=== PATIENT | female | born 1995 | race Caucasian/White ===

== ENCOUNTER 2017-02-10 10:59 | Inpatient (IN) | payer OTHER ==
--- NOTE | 2017-02-10 11:31 | PDOC ---
History of Present Illness - General History Source: Patient Exam Limitations: No Limitations - History of Present Illness Initial Comments: CHIEF COMPLAINT: 21 y/o afebrile female M1, approximately 16 weeks female with LMP 10/21/16 c/o abdominal pain, nausea and back pain today. HISTORY OF PRESENT ILLNESS: The patient states she started having abdominal pain last night. This morning she felt feverish and the pain was worse so she came here to be evaluated. She denies chills, MCKEON, cough, v/d, CP, SOB, hematuria, dysuria, abnormal vaginal bleeding, abnormal vaginal discharge. Vital signs on arrival are notable for pulse of 136 with temp of 99. REVIEW OF SYSTEMS: GENERAL/CONSTITUTIONAL: Subjective fever. No weakness. No weight change. HEAD, EYES, EARS, NOSE AND THROAT: No change in vision. No ear pain or discharge. No sore throat. CARDIOVASCULAR: No chest pain or shortness of breath. RESPIRATORY: No cough, wheezing, or hemoptysis. GASTROINTESTINAL: See history of present illness. GENITOURINARY: No dysuria, frequency, or change in urination. MUSCULOSKELETAL: No joint or muscle swelling or pain. No neck or back pain. SKIN: No rash or easy bruising. NEUROLOGIC: No headache, vertigo, loss of consciousness, or loss of sensation. PHYSICAL EXAM: GENERAL: The patient is awake, alert, and fully oriented, in no acute distress. HEAD: Normal with no signs of trauma. ENT: Pupils equal, round and reactive to light, extraocular movements intact, sclera anicteric, conjunctiva clear. LUNGS: Clear to auscultation bilaterally. Normal excursion. No respiratory distress or use of accessory muscles. CV: RRR, S1/S2, no MRG. Cap refill < 2 sec. ABDOMEN: Soft, non-distended, TTP of left lower quadrant and epigastric region. Right flank pain. VAGINAL: DEFERRED EXTREMITIES: Normal range of motion, no edema. NEUROLOGICAL: Normal speech, normal gait. CN II-XII grossly intact. PSYCH: Normal mood, normal affect. SKIN: Warm, dry, normal turgor, no rashes or lesions noted. <Asia Beckett - Last Filed: 02/10/17 18:11> <Naldo Sun - Last Filed: 02/10/17 21:33> - General Chief Complaint: Pain Stated Complaint: BACK PAIN Time Seen by Provider: 02/10/17 11:28 Past History - Past Medical History Other medical history: NONE - Psycho/Social/Smoking Cessation Hx Anxiety: No Suicidal Ideation: No Smoking History: Never smoked Hx Alcohol Use: No Drug/Substance Use Hx: No Substance Use Type: None <Asia Beckett - Last Filed: 02/10/17 18:11> <Naldo Sun - Last Filed: 02/10/17 21:33> - Past Medical History Allergies/Adverse Reactions: Allergies Allergy/AdvReac Type Severity Reaction Status Date / Time No Known Allergies Allergy Verified 02/10/17 11:03 Home Medications: Ambulatory Orders Cephalexin Monohydrate [Keflex -] 500 mg PO BID #14 capsule 02/10/17 *Physical Exam - Vital Signs Last Vital Signs Temp Pulse Resp BP Pulse Ox 99.0 F 136 H 20 116/58 98 02/10/17 11:00 02/10/17 11:00 02/10/17 11:00 02/10/17 11:00 02/10/17 11:00 <Asia Beckett - Last Filed: 02/10/17 18:11> - Vital Signs Last Vital Signs Temp Pulse Resp BP Pulse Ox 98.3 F 119 H 20 114/68 99 02/10/17 17:57 02/10/17 17:57 02/10/17 17:57 02/10/17 17:57 02/10/17 17:57 <Naldo Sun - Last Filed: 02/10/17 21:33> ED Treatment Course - LABORATORY CBC & Chemistry Diagram: 02/10/17 12:00 02/10/17 12:00 <Asia Beckett - Last Filed: 02/10/17 18:11> - LABORATORY CBC & Chemistry Diagram: 02/10/17 12:00 02/10/17 12:00 - ADDITIONAL ORDERS Additional order review: Laboratory Results 02/10/17 02/10/17 02/10/17 17:58 16:49 12:10 Sodium Potassium Chloride Carbon Dioxide Anion Gap BUN Creatinine Creat Clearance w eGFR Random Glucose Lactic Acid 0.8 Calcium Total Bilirubin AST ALT Alkaline Phosphatase Total Protein Albumin TSH 0.66 Free T4 1.15 Urine Color Yellow Urine Appearance Clear Urine pH 5.0 Ur Specific [place] 1.025 Urine Protein 1+ H Urine Glucose (UA) Negative Urine Ketones 2+ H Urine Blood Negative Urine Nitrite Negative Urine Bilirubin Negative Urine Urobilinogen Negative Ur Leukocyte Esterase Negative Urine RBC 1 Urine WBC 3 Ur Epithelial Cells Rare Hyaline Casts 3 Urine Mucus Many Blood Type Antibody Screen 02/10/17 02/10/17 12:00 12:00 Sodium 138 Potassium 3.7 Chloride 102 Carbon Dioxide 25 Anion Gap 11 BUN 6 L D Creatinine 0.5 L D Creat Clearance w eGFR > 60 Random Glucose 80 D Lactic Acid Calcium 8.6 Total Bilirubin 0.4 D AST 19 ALT 17 Alkaline Phosphatase 71 D Total Protein 6.9 Albumin 3.3 L TSH Free T4 Urine Color Urine Appearance Urine pH Ur Specific [place] Urine Protein Urine Glucose (UA) Urine Ketones Urine Blood Urine Nitrite Urine Bilirubin Urine Urobilinogen Ur Leukocyte Esterase Urine RBC Urine WBC Ur Epithelial Cells Hyaline Casts Urine Mucus Blood Type O POSITIVE Antibody Screen Negative 02/10/17 15:11 Group A Strep Rapid Antigen - Final Throat 02/10/17 12:00 RBC 4.43 MCV 85.0 MCHC 34.5 RDW 13.3 MPV 7.6 Neutrophils % 84.0 H D Lymphocytes % 4.9 L D Monocytes % 8.3 Eosinophils % 2.4 Basophils % 0.4 - Medications Given in the ED: ED Medications Discontinued Medications Generic Name Dose Route Start Last Admin Trade Name Dialloq PRN Reason Stop Dose Admin Acetaminophen 1,000 mg 02/10/17 14:46 02/10/17 14:51 Ofirmev Injection - IVPB 02/10/17 14:47 1,000 mg ONCE ONE Administration Cephalexin HCl 500 mg 02/10/17 16:21 02/10/17 16:35 Keflex - PO 02/10/17 16:22 500 mg ONCE ONE Administration Sodium Chloride 1,000 mls @ 1,000 mls/hr 02/10/17 12:24 02/10/17 13:08 Normal Saline - IV 02/10/17 13:23 1,000 mls/hr ASDIR STA Administration Sodium Chloride 1,000 mls @ 1,000 mls/hr 02/10/17 13:32 02/10/17 13:37 Normal Saline - IV 02/10/17 14:31 1,000 mls/hr ASDIR STA Administration Sodium Chloride 1,000 mls @ 1,000 mls/hr 02/10/17 16:31 02/10/17 16:51 Normal Saline - IV 02/10/17 17:30 1,000 mls/hr ASDIR STA Administration <Naldo Sun - Last Filed: 02/10/17 21:33> Medical Decision Making - Medical Decision Making A/P: 21 y/o afebrile female, approximately 16 weeks c/o abdominal pain and feeling feverish. Plan is as follows: 1. Labs 2. UA/culture 3. IV fluids x 2 4. Ultrasound Ultrasound IMPRESSION: Single live intrauterine gestation of 15 weeks 2 days Kidney ultrasound IMPRESSION: No hydronephrosis or sign of kidney stone. Pt is now febrile. Will give IV Ofirmev. Will do rapid strep to r/o throat infection Rapid strep - negative Will send for gallbladder ultrasound Gallbladder Ultrasound IMPRESSION: Normal gallbladder ultrasound. The patient has had 3 liters of fluids, is no longer febrile but continues to be tachycardic. She was given first dose of PO keflex for UTI. Will order EKG , thyroid studies and will start on D5 1/2NS @ 200L/hr. I am signing this patient out to my colleague: NERIS Sun In brief, this patient is being seen in the ED for a chief complaint of: abdominal pain and feeling feverish. I have completed the initial assessment interview note and have ordered: labs, ekg, kidney ultrasound, gallbladder ultrasound, transvaginal ultrasound, rapid strep, IV fluids, IV ofirmev I have reviewed the following results: all except thyroid studies Pending results are: Thyroid studies and repeat vital signs. Plan for disposition is as follows: Pending 02/10/17 18:12 <Asia Beckett - Last Filed: 02/10/17 18:11> - Medical Decision Making 02/10/17 20:22 VITALS: T- 100.9, P- 129, R-22, B/P- 109/68, O2- 100% RA. PLAN: ADMIT TO OBSERVATION RE: TACHYCARDIA, DEHYDRATION, 15 WEEKS. <Naldo Sun - Last Filed: 02/10/17 21:33> *DC/Admit/Observation/Transfer <Asia Beckett - Last Filed: 02/10/17 18:11> - Discharge Dispostion Admit: Yes <Naldo Sun - Last Filed: 02/10/17 21:33> Diagnosis at time of Disposition: Dehydration Fever Qualifiers: Fever type: unspecified Qualified Code(s): R50.9 - Fever, unspecified UTI (urinary tract infection) during Qualifiers: Trimester: second trimester Qualified Code(s): O23.42 - Unspecified infection of urinary tract in , second trimester - Discharge Dispostion Condition at time of disposition: Fair - Prescriptions Prescriptions: Cephalexin Monohydrate [Keflex -] 500 mg PO BID #14 capsule - Referrals Referrals: STAFF,NOT ON [Primary Care Provider] - - Patient Instructions Printed Discharge Instructions: DI for Urinary Tract Infection (UTI), DI for Fever (Symptom) -- Adult Additional Instructions: Discharge Instructions: -You have an infection in your urine; an antibiotic has been sent to your pharmacy; please pickle pumper today and take entire 7 days -You may have fever for the next few days. Please take 650mg of over the counter Tylenol every 4 hours for fever -Drink at least 64oz of water daily -Call your doctor and your MECHANICAL MANUFACTURING ENGINEER on Sunday to schedule follow up appointment -Return to the ER with any worsening or concerning symptoms. Instrucciones de shi: -Usted tiene mary jane infeccin en la orina; Se mckeon enviado un antibitico a garcia farmacia; Por favor recoja hoy y tome 7 pabon completos - Puede tener fiebre deanna los prximos pabon. Por favor, tome 650mg de sobre el mostrador Tylenol cada 4 horas para la fiebre - Angela por lo menos 64oz de agua al da - Llame a garcia mdico ya garcia obstetra / gineclogo el lunes para programar mary jane jose luis de seguimiento -Vuelva a la kan de emergencias con cualquier empeoramiento o sntomas relacionados. Print Language: JAPANESE
[2017-02-10 12:10] LABS: BASOPHIL 0.4 % (0-2.0); EOSINOPHIL 2.4 % (0-4.5); MCH 29.3 pg (25.7-33.7); MCHC 34.5 g/dl (32.0-36.0); MEAN PLT VOLUME 7.6 fl (7.5-11.1); PLATELET COUNT 256 K/MM3 (134-434); RDW 13.3 % (11.6-15.6); WHITE BLOOD COUNT 8.7 K/mm3 (4.0-10.0)
[2017-02-10 12:18] LABS: URINE APPEARANCE CLEAR; URINE BILIRUBIN NEGATIVE (NEGATIVE); URINE BLOOD NEGATIVE (NEGATIVE); URINE COLOR YELLOW; URINE GLUCOSE (UA) NEGATIVE (NEGATIVE); URINE KETONE 2+ (NEGATIVE); URINE LEUK ESTERASE NEGATIVE (NEGATIVE); URINE NITRITE NEGATIVE (NEGATIVE); URINE UROBILINOGEN NEGATIVE E.U./dl (0.2-1.0)
[2017-02-10] MEDS ORDERED: SODIUM CHLORIDE 1,000 ML IV STA ×3 (12:24→16:31)
[2017-02-10 12:34] LABS: ALBUMIN 3.3 g/dl (3.4-5.0); ALK PHOS 71 U/L (45-117); ANION GAP 11 (8-16); BILIRUBIN,TOTAL 0.4 mg/dL (0.2-1.0); CALCIUM 8.6 mg/dL (8.5-10.1); CO2 25 mmol/L (21-32); CREATININE 0.5 mg/dL (0.55-1.02); GLUCOSE,RANDOM 80 mg/dL (74-106); SGOT/AST 19 U/L (15-37); SGPT/ALT 17 U/L (12-78); TOT PROT 6.9 g/dl (6.4-8.2)
[2017-02-10 12:38] LABS: URINE PROTEIN 1+ (NEGATIVE)
[2017-02-10 12:43] LABS: URINE HYALINE CAST 3 /lpf; URINE MUCUS MANY; URINE RBC 1 /hpf (0-3); URINE WBC 3 /hpf (3-5)
[2017-02-10] MEDS ORDERED: ACETAMINOPHEN 1000 MG/100 ML VIAL (NON FORMULARY) IVPB ONE (14:46)
[2017-02-10] MEDS ORDERED: ACETAMINOPHEN INJECTION 100 ML IVPB ONE (14:49)
[2017-02-10] MEDS ORDERED: CEPHALEXIN MONOHYDRATE 500 MG CAPSULE (UD) PO ONE (16:21)
[2017-02-10] MEDS ORDERED: CEPHALEXIN MONOHYDRATE 250 MG CAPSULE (FP) ONE (16:24)
[2017-02-10] MEDS ORDERED: DEXTROSE 5%-0.45% SALINE 1,000 ML IV SCH ×2 (18:00→20:30)
[2017-02-10 19:31] LABS: FREE T4 1.15 ng/dl (0.76-1.46); THYROID STIMULATING HORMONE 0.66 uIU/ml (0.358-3.74)
--- NOTE | 2017-02-10 19:54 | PDOC ---
*Physical Exam - Vital Signs Last Vital Signs Temp Pulse Resp BP Pulse Ox 98.3 F 119 H 20 114/68 99 02/10/17 17:57 02/10/17 17:57 02/10/17 17:57 02/10/17 17:57 02/10/17 17:57 ED Treatment Course - LABORATORY CBC & Chemistry Diagram: 02/10/17 12:00 02/10/17 12:00 - ADDITIONAL ORDERS Additional order review: Laboratory Results 02/10/17 02/10/17 02/10/17 17:58 16:49 12:10 Sodium Potassium Chloride Carbon Dioxide Anion Gap BUN Creatinine Creat Clearance w eGFR Random Glucose Lactic Acid 0.8 Calcium Total Bilirubin AST ALT Alkaline Phosphatase Total Protein Albumin TSH 0.66 Free T4 1.15 Urine Color Yellow Urine Appearance Clear Urine pH 5.0 Ur Specific [place] 1.025 Urine Protein 1+ H Urine Glucose (UA) Negative Urine Ketones 2+ H Urine Blood Negative Urine Nitrite Negative Urine Bilirubin Negative Urine Urobilinogen Negative Ur Leukocyte Esterase Negative Urine RBC 1 Urine WBC 3 Ur Epithelial Cells Rare Hyaline Casts 3 Urine Mucus Many Blood Type Antibody Screen 02/10/17 02/10/17 12:00 12:00 Sodium 138 Potassium 3.7 Chloride 102 Carbon Dioxide 25 Anion Gap 11 BUN 6 L D Creatinine 0.5 L D Creat Clearance w eGFR > 60 Random Glucose 80 D Lactic Acid Calcium 8.6 Total Bilirubin 0.4 D AST 19 ALT 17 Alkaline Phosphatase 71 D Total Protein 6.9 Albumin 3.3 L TSH Free T4 Urine Color Urine Appearance Urine pH Ur Specific [place] Urine Protein Urine Glucose (UA) Urine Ketones Urine Blood Urine Nitrite Urine Bilirubin Urine Urobilinogen Ur Leukocyte Esterase Urine RBC Urine WBC Ur Epithelial Cells Hyaline Casts Urine Mucus Blood Type O POSITIVE Antibody Screen Negative 02/10/17 15:11 Group A Strep Rapid Antigen - Final Throat 02/10/17 12:00 RBC 4.43 MCV 85.0 MCHC 34.5 RDW 13.3 MPV 7.6 Neutrophils % 84.0 H D Lymphocytes % 4.9 L D Monocytes % 8.3 Eosinophils % 2.4 Basophils % 0.4 - Medications Given in the ED: ED Medications Discontinued Medications Generic Name Dose Route Start Last Admin Trade Name Freq PRN Reason Stop Dose Admin Acetaminophen 1,000 mg 02/10/17 14:46 02/10/17 14:51 Ofirmev Injection - IVPB 02/10/17 14:47 1,000 mg ONCE ONE Administration Cephalexin HCl 500 mg 02/10/17 16:21 02/10/17 16:35 Keflex - PO 02/10/17 16:22 500 mg ONCE ONE Administration Sodium Chloride 1,000 mls @ 1,000 mls/hr 02/10/17 12:24 02/10/17 13:08 Normal Saline - IV 02/10/17 13:23 1,000 mls/hr ASDIR STA Administration Sodium Chloride 1,000 mls @ 1,000 mls/hr 02/10/17 13:32 02/10/17 13:37 Normal Saline - IV 02/10/17 14:31 1,000 mls/hr ASDIR STA Administration Sodium Chloride 1,000 mls @ 1,000 mls/hr 02/10/17 16:31 02/10/17 16:51 Normal Saline - IV 02/10/17 17:30 1,000 mls/hr ASDIR STA Administration Medical Decision Making - Medical Decision Making 02/10/17 19:38 21 yo F signed out to me at 4pm, nettie garcía 21 yo F with 16 weeks here with not feeling well, subjective fevers, abd pain and flank pain, on her work up was found to have a normal renal ultrasound normal gallbladder and live iup on ultraosund remained persistantly tachycardic despite being afebrile. bedside TTE performed by myself, no pericardial effusion, good contractility, no rv dilation or strain, . impression: normal cardiac TTE. awaiting further hydration , po trial and reassessemnt. for persistant tachycardia plan to admit pt for observation. TSh added to r/o hyperthyroid. *DC/Admit/Observation/Transfer Diagnosis at time of Disposition: Fever Qualifiers: Fever type: unspecified Qualified Code(s): R50.9 - Fever, unspecified UTI (urinary tract infection) during Qualifiers: Trimester: second trimester Qualified Code(s): O23.42 - Unspecified infection of urinary tract in , second trimester - Discharge Dispostion Condition at time of disposition: Improved - Prescriptions Prescriptions: Cephalexin Monohydrate [Keflex -] 500 mg PO BID #14 capsule - Referrals Referrals: STAFF,NOT ON [Primary Care Provider] - - Patient Instructions Printed Discharge Instructions: DI for Urinary Tract Infection (UTI), DI for Fever (Symptom) -- Adult Additional Instructions: Discharge Instructions: -You have an infection in your urine; an antibiotic has been sent to your pharmacy; please mushroom picker today and take entire 7 days -You may have fever for the next few days. Please take 650mg of over the counter Tylenol every 4 hours for fever -Drink at least 64oz of water daily -Call your doctor and your CERTIFIED NOVELL ENGINEER on Sunday to schedule follow up appointment -Return to the ER with any worsening or concerning symptoms. Instrucciones de shi: -Usted tiene mary jane infeccin en la orina; Se eid enviado un antibitico a garcia farmacia; Por favor recoja hoy y tome 7 pabon completos - Puede tener fiebre deanna los prximos pabon. Por favor, tome 650mg de sobre el mostrador Tylenol cada 4 horas para la fiebre - Angela por lo menos 64oz de agua al da - Llame a garcia mdico ya garcia obstetra / gineclogo el lunes para programar mary jane jose luis de seguimiento -Vuelva a la kan de emergencias con cualquier empeoramiento o sntomas relacionados. Print Language: MALTESE - Post Discharge Activity
--- NOTE | 2017-02-10 21:14 | PN ---
Teaching Attending Note Name of Resident: Ayad Busby ATTENDING PHYSICIAN STATEMENT I saw and evaluated the patient. I reviewed the resident's note and discussed the case with the resident. I agree with the resident's findings and plan as documented. SUBJECTIVE: Patient is a 21yo 15week female presented to Ed. for having fever started this morning. Was found to have 101 fever in ED. back pain when taking deep breath on the left side. Boyfriend at bedside. OBJECTIVE: Vital Signs Temperature 100.4 F H 02/10/17 20:27 Pulse Rate 124 H 02/10/17 20:27 Respiratory Rate 18 02/10/17 20:27 Blood Pressure 109/62 02/10/17 20: O2 Sat by Pulse Oximetry (%) 98 02/10/17 20:27 PHYSICAL EXAM: GENERAL: The patient is awake, alert, and fully oriented, in no acute distress. HEAD: Normal with no signs of trauma. ENT: Pupils equal, round and reactive to light, extraocular movements intact, sclera anicteric, conjunctiva clear. LUNGS: CTA BL, positive for mild crackles at left basis. CV: RRR, S1/S2, sinus tachycardia ABDOMEN: Soft, non-distended, no epigastric tenderness. No CVA tenderness. EXTREMITIES: Normal range of motion, no edema. NEUROLOGICAL: Normal speech, normal gait. CN II-XII grossly intact. PSYCH: Normal mood, normal affect. SKIN: Warm, dry, normal turgor, no rashes or lesions noted. : DEFERRED CBCD WBC 8.7 K/mm3 (4.0-10.0) 02/10/17 12:00 RBC 4.43 M/mm3 (3.60-5.2) 02/10/17 12:00 Hgb 13.0 GM/dL (10.7-15.3) 02/10/17 12:00 Hct 37.6 % (32.4-45.2) 02/10/17 12:00 MCV 85.0 fl (80-96) 02/10/17 12:00 MCHC 34.5 g/dl (32.0-36.0) 02/10/17 12:00 RDW 13.3 % (11.6-15.6) 02/10/17 12:00 Plt Count 256 K/MM3 (134-434) D 02/10/17 12:00 MPV 7.6 fl (7.5-11.1) 02/10/17 12:00 CMP Sodium 138 mmol/L (136-145) 02/10/17 12:00 Potassium 3.7 mmol/L (3.5-5.1) 02/10/17 12:00 Chloride 102 mmol/L (98-107) 02/10/17 12:00 Carbon Dioxide 25 mmol/L (21-32) 02/10/17 12:00 Anion Gap 11 (8-16) 02/10/17 12:00 BUN 6 mg/dL (7-18) L D 02/10/17 12:00 Creatinine 0.5 mg/dL (0.55-1.02) L D 02/10/17 12:00 Creat Clearance w eGFR > 60 (>60) 02/10/17 12:00 Random Glucose 80 mg/dL (74-106) D 02/10/17 12:00 Calcium 8.6 mg/dL (8.5-10.1) 02/10/17 12:00 Total Bilirubin 0.4 mg/dL (0.2-1.0) D 02/10/17 12:00 AST 19 U/L (15-37) 02/10/17 12:00 ALT 17 U/L (12-78) 02/10/17 12:00 Alkaline Phosphatase 71 U/L (45-117) D 02/10/17 12:00 Total Protein 6.9 g/dl (6.4-8.2) 02/10/17 12:00 Albumin 3.3 g/dl (3.4-5.0) L 02/10/17 12:00 Current Medications Generic Name Dose Route Start Last Admin Trade Name Freq PRN Reason Stop Dose Admin Dextrose/Sodium Chloride 1,000 mls @ 200 mls/hr 02/10/17 18:00 02/10/17 18:02 D5-1/2ns - IV 200 mls/hr ASDIR YELITZA Administration Dextrose/Sodium Chloride 1,000 mls @ 125 mls/hr 02/10/17 20:30 02/10/17 20:42 D5-1/2ns - IV 125 mls/hr ASDIR YELITZA Administration Home Medications Medication Instructions Recorded Cephalexin Monohydrate [Keflex -] 500 mg PO BID #14 capsule 02/10/17 Laboratory Tests 02/10/17 02/10/17 12:00 17:58 BUN 6 L D Creatinine 0.5 L D Albumin 3.3 L TSH 0.66 Free T4 1.15 Urine Test Results Urine Color Yellow 02/10/17 12:10 Urine Appearance Clear 02/10/17 12:10 Urine pH 5.0 (5.0-8.0) 02/10/17 12:10 Ur Specific [place] 1.025 (1.005-1.025) 02/10/17 12:10 Urine Protein 1+ (NEGATIVE) H 02/10/17 12:10 Urine Glucose (UA) Negative (NEGATIVE) 02/10/17 12:10 Urine Ketones 2+ (NEGATIVE) H 02/10/17 12:10 Urine Blood Negative (NEGATIVE) 02/10/17 12:10 Urine Nitrite Negative (NEGATIVE) 02/10/17 12:10 Urine Bilirubin Negative (NEGATIVE) 02/10/17 12:10 Ur Leukocyte Esterase Negative (NEGATIVE) 02/10/17 12:10 Urine RBC 1 /hpf (0-3) 02/10/17 12:10 Urine WBC 3 /hpf (3-5) 02/10/17 12:10 Ur Epithelial Cells Rare /hpf (FEW) 02/10/17 12:10 Urine Mucus Many 02/10/17 12:10 US of abdomen,renal done: reviewed and negative ASSESSMENT AND PLAN: Patient is a 21yo 15week female presented to Ed. for having fever started this morning. Was found to have 101 fever in ED. c/o having back pain when taking deep breaths on the left side. # Possible early Pneumonia, an xray is pending. Tachycardic rate of 120-130s, fever of 101, no Leukocytosis ; will start the patient on Rocephin 1gm daily for consult and OBGyn Dr. Long. Septic w/u is being done. IVF 0.9ns 200CC/HR. REPEAT CBC WITH DIFF IN AM. repeat lactic in 3 hrs. !st set is 0.8 # of 15 week obgyn CONSULT. reviewed US DVT Px; early ambulation
--- NOTE | 2017-02-10 22:36 | HP ---
CHIEF COMPLAINT: fevers, nausea HISTORY OF PRESENT ILLNESS: 21 y/o Icelandic speaking F who is 15 weeks who presents to the ER with subjective fevers since this morning. She also c/o nausea, L mid back pain, and as if her heart is racing. Her back pain is worsened with deep inspiration. She denies vomiting, cough, CP, SOB, neck pain, diarrhea, dysuria, light-headedness , sick contacts, recent travel. ER course was notable for: (1) Gallbladder U/S, Renal U/S, Transvaginal U/S (2) (3) Recent Travel: denies PAST MEDICAL HISTORY: denies any PMH PAST SURGICAL HISTORY: denies Social History: Smoking: denies Family History: non-contributory Allergies No Known Allergies Allergy (Verified 02/10/17 11:03) HOME MEDICATIONS: Home Medications Medication Instructions Recorded Cephalexin Monohydrate [Keflex -] 500 mg PO BID #14 capsule 02/10/17 REVIEW OF SYSTEMS CONSTITUTIONAL: +fever Absent: chills HEENT: Absent: rhinorrhea, nasal congestion, visual changes CARDIOVASCULAR: +heart racing Absent: chest pain, syncope, palpitations, lightheadedness, peripheral edema RESPIRATORY: Absent: cough, shortness of breath GASTROINTESTINAL: +nausea Absent: vomiting, diarrhea, constipation GENITOURINARY: Absent: dysuria, hematuria MUSCULOSKELETAL: +back pain NEUROLOGIC: +headache Absent:dizziness, unsteady gait, seizure, mental status changes Vital Signs Temperature 100.4 F H 02/10/17 20:27 Pulse Rate 124 H 02/10/17 20:27 Respiratory Rate 18 02/10/17 20:27 Blood Pressure 109/62 02/10/17 20:27 O2 Sat by Pulse Oximetry (%) 98 02/10/17 20:27 PHYSICAL EXAMINATION GENERAL: Awake, alert, and fully oriented, in no acute distress. HEAD: Normal with no signs of trauma. EYES: extraocular movements intact, sclera anicteric, conjunctiva clear. No lid lag. EARS, NOSE, THROAT: Ears normal, nares patent, oropharynx clear without exudates. NECK: Normal range of motion, supple LUNGS: Breath sounds equal, clear to auscultation bilaterally. No wheezes, and no crackles. No accessory muscle use. HEART: Tachycardic, normal S1 and S2 without murmur, rub or gallop. ABDOMEN: Soft, nontender, not distended, normoactive bowel sounds, no guarding, no rebound, no masses. No hepatomegaly or splenomegaly. MUSCULOSKELETAL: Normal range of motion at all joints. No bony deformities or tenderness. No CVA tenderness. LOWER EXTREMITIES: 2+ pulses, warm, well-perfused. No calf tenderness. No peripheral edema. NEUROLOGICAL: Normal speech. Gait not observed. PSYCHIATRIC: Cooperative. Good eye contact. Appropriate mood and affect. SKIN: tactile fever, dry. CBCD WBC 8.7 K/mm3 (4.0-10.0) 02/10/17 12:00 RBC 4.43 M/mm3 (3.60-5.2) 02/10/17 12:00 Hgb 13.0 GM/dL (10.7-15.3) 02/10/17 12:00 Hct 37.6 % (32.4-45.2) 02/10/17 12:00 MCV 85.0 fl (80-96) 02/10/17 12:00 MCHC 34.5 g/dl (32.0-36.0) 02/10/17 12:00 RDW 13.3 % (11.6-15.6) 02/10/17 12:00 Plt Count 256 K/MM3 (134-434) D 02/10/17 12:00 MPV 7.6 fl (7.5-11.1) 02/10/17 12:00 CMP Sodium 138 mmol/L (136-145) 02/10/17 12:00 Potassium 3.7 mmol/L (3.5-5.1) 02/10/17 12:00 Chloride 102 mmol/L (98-107) 02/10/17 12:00 Carbon Dioxide 25 mmol/L (21-32) 02/10/17 12:00 Anion Gap 11 (8-16) 02/10/17 12:00 BUN 6 mg/dL (7-18) L D 02/10/17 12:00 Creatinine 0.5 mg/dL (0.55-1.02) L D 02/10/17 12:00 Creat Clearance w eGFR > 60 (>60) 02/10/17 12:00 Random Glucose 80 mg/dL (74-106) D 02/10/17 12:00 Calcium 8.6 mg/dL (8.5-10.1) 02/10/17 12:00 Total Bilirubin 0.4 mg/dL (0.2-1.0) D 02/10/17 12:00 AST 19 U/L (15-37) 02/10/17 12:00 ALT 17 U/L (12-78) 02/10/17 12:00 Alkaline Phosphatase 71 U/L (45-117) D 02/10/17 12:00 Total Protein 6.9 g/dl (6.4-8.2) 02/10/17 12:00 Albumin 3.3 g/dl (3.4-5.0) L 02/10/17 12:00 Imaging: Ultrasound IMPRESSION: Single live intrauterine gestation of 15 weeks 2 days Kidney ultrasound IMPRESSION: No hydronephrosis or sign of kidney stone. Gallbladder Ultrasound IMPRESSION: Normal gallbladder ultrasound. ASSESSMENT/PLAN: 21 y/o Icelandic speaking F who is 15 weeks who presents to the ER with subjective fevers since this morning. Found to have fever of 100.4 and tachycardic w/worsening back pain with deep inspiration. -Fever and tachycardia -likely secondary to early onset community acquired pna -will get CXR with shielding of abdomen -ceftriaxone 1g iv qd -ID consult -tylenol for fevers -NS @ 200 ml/hr -TSH 0.66; free T4 1.15 -f/u free T3 -Lactic acid 0.8 --> 2, will continue to trend -Fever of 102.4 in ER, will give 1 g IV ofirmev at this time. -Intrauterine -15 weeks -yarder operator consult -DVT ppx -SCDs -FEN -NS @ 200 ml/hr -Monitor electrolytes -Regular diet -Dispo: -admit to m/s Visit type - Emergency Visit Emergency Visit: Yes ED Registration Date: 02/10/17 Care time: The patient presented to the Emergency Department on the above date and was hospitalized for further evaluation of their emergent condition. - New Patient This patient is new to me today: Yes Date on this admission: 02/11/17 - Critical Care Critical Care patient: No
[2017-02-10] MEDS ORDERED: SODIUM CHLORIDE 1,000 ML IV SCH (22:45)
[2017-02-10] MEDS ORDERED: ACETAMINOPHEN 500 MG TABLET (FP) PO PRN (23:10)
[2017-02-10] MEDS ORDERED: ACETAMINOPHEN 500 MG TABLET (FP) PO ONE (23:20)
[2017-02-10] MEDS ORDERED: ACETAMINOPHEN 325 MG TABLET (FP) ONE (23:26)
[2017-02-11] MEDS ORDERED: CEFTRIAXONE 50 ML ONE (00:06)
[2017-02-11] MEDS ORDERED: CEFTRIAXONE 1 GM in DEXTROSE 5%-WATER - 100 ML IVPB ONE (00:12)
[2017-02-11] MEDS ORDERED: ACETAMINOPHEN 1000 MG/100 ML VIAL (NON FORMULARY) IVPB ONE (00:43)
[2017-02-11] MEDS ORDERED: ACETAMINOPHEN 325 MG TABLET (FP) PO PRN (00:46)
[2017-02-11] MEDS: SODIUM CHLORIDE 1,000 ML IV SCH ×3 (02:16→13:15)
[2017-02-11 04:06] VITALS: BMI 24.3
[2017-02-11 08:33] LABS: BASOPHIL 0.5 % (0-2.0); EOSINOPHIL 2.1 % (0-4.5); MCH 29.6 pg (25.7-33.7); MCHC 34.2 g/dl (32.0-36.0); MEAN CELL VOLUME 86.5 fl (80-96); NEUTROPHILS 64.9 % (42.8-82.8); PLATELET COUNT 214 K/MM3 (134-434); RDW 13.2 % (11.6-15.6); WHITE BLOOD COUNT 5.8 K/mm3 (4.0-10.0)
[2017-02-11 08:58] LABS: ALBUMIN 2.6 g/dl (3.4-5.0); ANION GAP 8 (8-16); CALCIUM 8.3 mg/dL (8.5-10.1); CO2 23 mmol/L (21-32); CREATININE 0.4 mg/dL (0.55-1.02); GLUCOSE,RANDOM 78 mg/dL (74-106); SGOT/AST 19 U/L (15-37); SGPT/ALT 15 U/L (12-78)
[2017-02-11 09:00] LABS: ALK PHOS 57 U/L (45-117); BILIRUBIN,TOTAL 0.3 mg/dL (0.2-1.0); TOT PROT 5.7 g/dl (6.4-8.2)
[2017-02-11] MEDS ORDERED: cefTRIAXone 1 GM/50 ML BAG (PRE-DOCKED) IVPB SCH (10:00)
[2017-02-11] MEDS ORDERED: CEFTRIAXONE 1 GM in DEXTROSE 5%-WATER - 50 ML IVPB SCH (10:00)
--- NOTE | 2017-02-11 10:09 | PN ---
Progress Note, Physician Chief Complaint: 15 weeks gestation from [facility] living in 2 years presents with fever headache mild left flank and upper abd discomfort Denies urinary complaints couph sputum body aches rash diarrhea. NO recent travel Headaches and abd discomfort have resolved. Denies prior medical history allergies. No outdoor travel tick bites gardening. No one else home ill. Obstetrical ultrasound normal. - Current Medication List Current Medications: Active Medications Acetaminophen (Tylenol -) 650 mg PO Q6H PRN PRN Reason: FEVER OR PAIN Ceftriaxone Sodium (Rocephin 1gm Ivpb (Pre-Docked)) 1 gm IVPB DAILY [facility] Last Admin: 02/11/17 09:45 Dose: 1 gm Sodium Chloride (Normal Saline -) 1,000 mls @ 200 mls/hr IV ASDIR [facility] Last Admin: 02/11/17 06:17 Dose: 200 mls/hr - Objective Vital Signs: Vital Signs Temperature 98.1 F 02/11/17 08:50 Pulse Rate 105 H 02/11/17 08:50 Respiratory Rate 18 02/11/17 08:50 Blood Pressure 110/58 02/11/17 08:50 O2 Sat by Pulse Oximetry (%) 99 02/11/17 02:18 Constitutional: Yes: Well Nourished, No Distress Eyes: Yes: WNL, Conjunctiva Clear HENT: Yes: WNL, Atraumatic, Normocephalic Neck: Yes: WNL, Supple Cardiovascular: Yes: Regular Rate and Rhythm, S1, S2 Respiratory: Yes: WNL, Regular, CTA Bilaterally Gastrointestinal: Yes: WNL, Normal Bowel Sounds, Soft. No: Tenderness Edema: No Labs: CBC, BMP 02/11/17 07:50 02/11/17 07:50 Problem List - Problems (1) Fever Code(s): R50.9 - FEVER, UNSPECIFIED Qualifiers: Fever type: unspecified Qualified Code(s): R50.9 - Fever, unspecified (2) Code(s): Z33.1 - STATE, INCIDENTAL Assessment/Plan Laboratory Tests 02/10/17 02/11/17 02/11/17 12:10 07:50 07:50 WBC 5.8 D Hgb 11.8 Hct 34.5 Plt Count 214 Neutrophils % 64.9 D Lymphocytes % 16.6 D Monocytes % 15.9 H D Creatinine 0.4 L Creat Clearance w eGFR > 60 AST 19 ALT 15 Alkaline Phosphatase 57 Ur Leukocyte Esterase Negative Urine RBC 1 Urine WBC 3 Assessment 15 weeks with 102 fever No obvious source Viral illness considered Plan As discussed Ceftriaxone 1 gram daily pending blood urine c /s Mary DIALLO
--- NOTE | 2017-02-11 11:43 | PN ---
Physical Exam: SUBJECTIVE: Patient seen and examined at bed side this morning. Feels better than yesterday. Denies chest pain, sob, cough, palpitation, abdominal pain, nausea or vomiting. Bowel/Bladder habit normal. Sleep/Appetite normal. Patient mentioned that last night she had severe abdominal pain, radiating towards the left flank. She also had fever (not recorded) associated with chills en route to the hospital. She was concerned for abdominal pain since she had a miscarriage at 6months gestation around 2yrs ago. reports no vaginal bleeding or discharge. 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 No urinary symptoms at this time. OBJECTIVE: Vital Signs Period Temp Pulse Resp BP Sys/Powell Pulse Ox Last 24 Hr 98.1 F-102.4 F 105-146 18-22 95-112/55-67 98-99 GENERAL: Young female, is awake, alert, and fully oriented, in no acute distress. HEAD: Normal with no signs of trauma. EYES: EOM intact, no pallor or icterus. ENT: Ears normal, moist mucous membranes. NECK: Supple. LUNGS: Breath sounds equal, clear to auscultation bilaterally, no wheezes, no crackles, no accessory muscle use. HEART: Regular rate and rhythm, S1, S2 without murmur, rub or gallop. ABDOMEN: Soft, nontender, nondistended, normoactive bowel sounds, no guarding, no rebound, no hepatosplenomegaly, no masses. EXTREMITIES: 2+ pulses, warm, well-perfused, no edema. NEUROLOGICAL: No facial droop, Cranial nerves II through XII grossly intact. Normal speech, gait not observed. PSYCH: Normal mood, normal affect. SKIN: Warm, dry, normal turgor, no rashes or lesions noted Laboratory Results - last 24 hr 02/11/17 02/11/17 02/11/17 00:15 07:50 07:50 WBC 5.8 D RBC 3.99 Hgb 11.8 Hct 34.5 MCV 86.5 MCHC 34.2 RDW 13.2 Plt Count 214 MPV 8.0 Neutrophils % 64.9 D Lymphocytes % 16.6 D Monocytes % 15.9 H D Eosinophils % 2.1 Basophils % 0.5 Sodium 140 Potassium 3.8 Chloride 109 H Carbon Dioxide 23 Anion Gap 8 BUN 2 L* D Creatinine 0.4 L Creat Clearance w eGFR > 60 Random Glucose 78 Lactic Acid 2.0 Calcium 8.3 L Total Bilirubin 0.3 D AST 19 ALT 15 Alkaline Phosphatase 57 Total Protein 5.7 L Albumin 2.6 L D 02/11/17 07:50 WBC RBC Hgb Hct MCV MCHC RDW Plt Count MPV Neutrophils % Lymphocytes % Monocytes % Eosinophils % Basophils % Sodium Potassium Chloride Carbon Dioxide Anion Gap BUN Creatinine Creat Clearance w eGFR Random Glucose Lactic Acid 0.7 Calcium Total Bilirubin AST ALT Alkaline Phosphatase Total Protein Albumin Active Medications Generic Name Dose Route Start Last Admin Trade Name Freq PRN Reason Stop Dose Admin Acetaminophen 650 mg 02/11/17 00:46 Tylenol - PO Q6H PRN FEVER OR PAIN Ceftriaxone Sodium 1 gm 02/11/17 10:00 02/11/17 09:45 Rocephin 1gm Ivpb (Pre-Docked) IVPB 1 gm DAILY YELITZA Administration Sodium Chloride 1,000 mls @ 200 mls/hr 02/11/17 00:44 02/11/17 06:17 Normal Saline - IV 200 mls/hr ASDIR YELITZA Administration Imaging: Ultrasound IMPRESSION: Single live intrauterine gestation of 15 weeks 2 days Kidney ultrasound IMPRESSION: No hydronephrosis or sign of kidney stone. Gallbladder Ultrasound IMPRESSION: Normal gallbladder ultrasound. ASSESSMENT/PLAN: Patient is a 21 year old [place] Citizen speaking Female G2L0 @ 15 weeks gestation who presented to the ED with subjective fevers since this morning. Found to have fever of 100.4 and tachycardic with worsening back pain with deep inspiration. # Viral fever R/o pneumonia, UTI Has no urinary symptoms, no cough, sob, had a fever x 1 day which wasn't recorded. Group A strep-negative Throat culture pending Admitted in Med Surg IV NS @ 100mls/hr IV Ceftriaxone 1gm daily - Day 1 until blood culture and urine cultures come back CXR (done with spear for )- no acute pathology Lactic acid 0.8---> 2-->0.7-->1.9 Tylenol 650mg Q6H prn ID consult appreciated # G4L0 USG showed 15 weeks and 2 days gestation Shank Carrier consult requested # FEN IV NS @ 100mls./hr Electrolytes to be repeated in the morning Regular diet # Prophylaxis For DVT: Ambulating For GI: Not indicated # Dispo:Admitted in Med-Surg. Possible discharge tomorrow. Illness, Investigation and Plan of care explained to the patient. She verbalized understanding. Case discussed with Dr. Wiggins. Visit type - Emergency Visit Emergency Visit: Yes ED Registration Date: 02/10/17 Care time: The patient presented to the Emergency Department on the above date and was hospitalized for further evaluation of their emergent condition. - New Patient This patient is new to me today: Yes Date on this admission: 02/11/17 - Critical Care Critical Care patient: No
[2017-02-11] MEDS ORDERED: SODIUM CHLORIDE 1,000 ML IV SCH (14:28)
--- NOTE | 2017-02-11 16:01 | PN ---
Teaching Attending Note Name of Resident: Samara Russell ATTENDING PHYSICIAN STATEMENT I saw and evaluated the patient. I reviewed the resident's note and discussed the case with the resident. I agree with the resident's findings and plan as documented. SUBJECTIVE:fever . no chills reports sore throat and runny nose 3 days ago, then developed abd pain and back pain with breathins yesterday now resolved. no diarrhea , no dysuria or vaginal discharge or bleed OBJECTIVE: NAD CV: RRR Lungs : CTAB ext : no edema Abd : soft, NT, ND , NL BS ASSESSMENT AND PLAN: 21 y/o lady who is 15 week presented with fever . 1- fever : no clear source . likely viral illness ( sore throat , runny nose and now abd pain ) . no UA , no PNA . no leukocytosis . no vaginal discharge rapid strep Neg. cx of throat pending blood cx pending cont CTX. d/w ID 2- Pregnency : SENIOR CLINICAL DATA ANALYST consult
--- NOTE | 2017-02-11 17:25 | EKG ---
Test Reason : Blood Pressure : / mmHG Vent. Rate : 112 BPM Atrial Rate : 112 BPM P-R Int : 130 ms QRS Dur : 082 ms QT Int : 328 ms P-R-T Axes : 034 047 010 degrees QTc Int : 447 ms SINUS TACHYCARDIA NONSPECIFIC T WAVE ABNORMALITY ABNORMAL ECG NO PREVIOUS ECGS AVAILABLE Confirmed by RINKU BURROUGHS MD ([id number]) on 02/11/2017 5:25:09 PM Referred By: Confirmed By:RINKU BURROUGHS MD
--- NOTE | 2017-02-11 19:47 | CON.OBG ---
Consult Consult Specialty:: provider relations consultant Referred by:: Kehinde Bray Reason for Consultation:: 15 weeks preg c/o fever ,headache, vague upper abd pain - History of Present Illness Chief Complaint: 21 yrs , LMP 10/21/16 , 16 weeks by dates admitted fron ER on 02/10/17 for fever, upper abd pain & headache for 1 day . she is being treated with IV ceftriaxione 1gm ivpb daily History of Present Illness: care at [address] [place] [address] . 2 visits with provider . pt presently has no symptoms of pain or headache or vomiting . she has no urine symptoms of burning or dysuria or frequency etc . work up in ER & as in patient noted cxray neg, GB us neg for cholelthiasis, Renal Us neg, OB US 15./ weeks SILUP, cx 3.0 cm , normal amniotic fluid Cultures Urine, throat, infuenza all neg . 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 No: Migraine, Seizure Cardio/Vascular: No: HTN, Murmur Pulmonary: No: Asthma Gastrointestinal: Yes: Other (no vomoting , vague upper abd pain ). No: Gastritis Hepatobiliary: No: Choledocholithiasis Renal/: No: UTI ...LMP: 10/21/16 (EDCby Dates 07/29/17. 16 wks gestation ) ...: Yes ...: 2 (1 sp ab at 6months, still born on 09/16/2005in [place] ) ...Para: 0 Infectious Disease: No: HIV, STD's Psych: No: Addictions, Anxiety, Bipolar, Depression Endocrine: No: Diabetes Mellitus, Hyperthyroidism, Hypothyroidism - Past Surgical History Past Surgical History: Yes: None - Alcohol/Substance Use Hx Alcohol Use: No History of Substance Use: reports: None - Smoking History Smoking history: Never smoked Home Medications - Allergies Allergies/Adverse Reactions: Allergies Allergy/AdvReac Type Severity Reaction Status Date / Time No Known Allergies Allergy Verified 02/10/17 11:03 - Home Medications Home Medications: Ambulatory Orders Cephalexin Monohydrate [Keflex -] 500 mg PO BID #14 capsule 02/10/17 Physical Exam-[facility] Vital Signs: Vital Signs Temperature 97.4 F L 02/11/17 16:24 Pulse Rate 94 H 02/11/17 16:24 Respiratory Rate 16 02/11/17 16:24 Blood Pressure 106/61 02/11/17 16:24 O2 Sat by Pulse Oximetry (%) 99 02/11/17 09:00 Selected Entries 02/10/17 02/10/17 02/10/17 11:00 14:46 16:35 Temperature 100.1 F H Pulse Rate 136 H Pulse Rate [ 122 H 132 H Radial] 02/10/17 02/10/17 02/11/17 17:57 20:27 06:00 Temperature 100.4 F H 99.8 F H Pulse Rate 107 H Pulse Rate [ 119 H 124 H Radial] 02/11/17 08:50 Temperature 98.1 F Pulse Rate 105 H Pulse Rate [ Radial] Constitutional: Yes: Well Nourished, No Distress, Other (pleasnt) Eyes: Yes: WNL HENT: Yes: WNL, Normocephalic Neck: Yes: WNL Cardiovascular: Yes: WNL, Regular Rate and Rhythm Respiratory: Yes: WNL Gastrointestinal: Yes: WNL, Normal Bowel Sounds. No: Tenderness ...Rectal Exam: Yes: Deferred Renal/: Yes: WNL, . No: CVA Tenderness - Left, CVA Tenderness - Right , Vaginal Bleeding External Genitalia: Yes: Normal Internal Exam Deferred: Yes Vaginal Exam: Yes: Normal Cervix: Yes: Normal, Other (cx closed, firm.). No: Bleeding, Cerv Motion Tenderness Uterus: Yes: Enlarged (16 weeks uterus fudal Ht 16 weeks size FPF. FHS 156 bpm by doppler in the midline), Soft Adnexa: Normal: Bilateral, Not Palpable: Bilateral Breast(s): Yes: WNL Musculoskeletal: Yes: WNL Extremities: Yes: WNL. No: Calf Tenderness Edema: No Integumentary: Yes: WNL Neurological: Yes: WNL, Alert, Oriented ...Motor Strength: WNL Psychiatric: Yes: WNL, Alert, Oriented Labs: CBC, BMP 02/11/17 07:50 02/11/17 07:50 Microbiology 02/10/17 20:30 Nasopharyngeal Swab Influenza Types A,B Antigen (DEION) - Final 02/10/17 20:30 Nasopharyngeal Swab - Final 02/10/17 15:11 Throat Group A Strep Rapid Antigen - Final 02/10/17 12:10 Urine - Urine Clean Catch Urine Culture - Final NO GROWTH OBTAINED 02/10/17 20:30 Nasopharyngeal Swab Respiratory Virus Panel - Preliminary 02/10/17 15:11 Throat Throat Culture - Preliminary 02/10/17 15:11 Throat Pending Organism Laboratory Tests 02/10/17 02/10/17 02/10/17 12:00 12:10 17:58 WBC 8.7 Hgb 13.0 Hct 37.6 Plt Count 256 D Neutrophils % 84.0 H D Lymphocytes % 4.9 L D AST ALT TSH 0.66 Free T4 1.15 Urine Protein 1+ H Urine Ketones 2+ H Ur Leukocyte Esterase Negative Urine RBC 1 Urine WBC 3 02/11/17 07:50 WBC Hgb Hct Plt Count Neutrophils % Lymphocytes % AST 19 ALT 15 TSH Free T4 Urine Protein Urine Ketones Ur Leukocyte Esterase Urine RBC Urine WBC Problem List - Problems (1) 16 weeks gestation of Code(s): Z3A.16 - 16 WEEKS GESTATION OF (2) Dehydration Code(s): E86.0 - DEHYDRATION (3) Fever of unknown origin Code(s): R50.9 - FEVER, UNSPECIFIED Assessment/Plan 21 yrs , 16 weks by dates, 15.2 weeks by sono admitted for fever of unknown origin work up neg for infection most probably secondary to dehydration , commonly seen in due to lack of po intake of fluids , especially when weather is hot. recommend stop antibiotics po fluids pt should continue her vit daily . keep her clinic appt on 02/20/[address] [place] [address] for follow up
[2017-02-12] MEDS ORDERED: CEFTRIAXONE 1 GM in DEXTROSE 5%-WATER - 50 ML IVPB ONE (07:54)
[2017-02-12 08:22] VITALS: BP 115/65; PULSE 88; TEMP 98.3
[2017-02-12 08:22] LABS: MCH 29.6 pg (25.7-33.7); MCHC 34.4 g/dl (32.0-36.0); MEAN CELL VOLUME 85.9 fl (80-96); PLATELET COUNT 221 K/MM3 (134-434); RDW 13.3 % (11.6-15.6); WHITE BLOOD COUNT 5.1 K/mm3 (4.0-10.0)
--- NOTE | 2017-02-12 08:32 | PN ---
Progress Note (short form) - Note Progress Note: ID Feels well no complaints Selected Entries 02/12/17 08:21 Temperature 98.3 F Pulse Rate 88 Respiratory 18 Rate Blood Pressure 115/65 Laboratory Tests 02/11/17 02/12/17 07:50 06:30 WBC 5.8 D Pending Hgb 11.8 Pending Plt Count 214 Pending Assessment Afebrile? beta strep on throat culture but no sorethroat Plan Can discharge on no antibiotics or could give PCN VK Mary DIALLO Problem List - Problems (1) Fever Code(s): R50.9 - FEVER, UNSPECIFIED Qualifiers: Fever type: unspecified Qualified Code(s): R50.9 - Fever, unspecified (2) Code(s): Z33.1 - STATE, INCIDENTAL
[2017-02-12 08:48] LABS: ANION GAP 7 (8-16); CALCIUM 8.3 mg/dL (8.5-10.1); CO2 25 mmol/L (21-32); CREATININE 0.4 mg/dL (0.55-1.02); GLUCOSE,RANDOM 69 mg/dL (74-106)
[2017-02-12 10:23] LABS: PLATELET ESTIMATE ADEQUATE (NORMAL)
--- NOTE | 2017-02-12 13:54 | DS ---
Physical Exam: SUBJECTIVE: Patient seen and examined at bed side this morning. No complaints. Denies chest pain, sob, cough, palpitation, abdominal pain, nausea or vomiting. Bowel/Bladder habit normal. Sleep/Appetite normal. OBJECTIVE: Vital Signs Period Temp Pulse Resp BP Sys/Powell Pulse Ox Last 24 Hr 97.4 F-99 F 88-99 16-18 98-116/52-65 99-99 PHYSICAL EXAM GENERAL: Young female, is awake, alert, and fully oriented, in no acute distress. HEAD: Normal with no signs of trauma. EYES: EOM intact, no pallor or icterus. ENT: Ears normal, moist mucous membranes. NECK: Supple. LUNGS: Breath sounds equal, clear to auscultation bilaterally, no wheezes, no crackles, no accessory muscle use. HEART: Regular rate and rhythm, S1, S2 without murmur, rub or gallop. ABDOMEN: Soft, nontender, nondistended, normoactive bowel sounds, no guarding, no rebound, no hepatosplenomegaly, no masses. EXTREMITIES: 2+ pulses, warm, well-perfused, no edema. NEUROLOGICAL: No facial droop, Cranial nerves II through XII grossly intact. Normal speech, gait not observed. PSYCH: Normal mood, normal affect. SKIN: Warm, dry, normal turgor, no rashes or lesions noted LABS Laboratory Results - last 24 hr 02/11/17 02/12/17 02/12/17 14:45 06:30 06:30 WBC 5.1 RBC 4.09 Hgb 12.1 Hct 35.1 MCV 85.9 MCHC 34.4 RDW 13.3 Plt Count 221 MPV 8.0 Neutrophils % 48.0 D Lymphocytes % 30.0 D Monocytes % 21.0 H Eosinophils % 1.0 Differential Comment Manual diff done Platelet Estimate Adequate Sodium 139 Potassium 3.9 Chloride 107 Carbon Dioxide 25 Anion Gap 7 L BUN 5 L D Creatinine 0.4 L Random Glucose 69 L Lactic Acid 1.9 Calcium 8.3 L Ultrasound IMPRESSION: Single live intrauterine gestation of 15 weeks 2 days Kidney ultrasound IMPRESSION: No hydronephrosis or sign of kidney stone. Gallbladder Ultrasound IMPRESSION: Normal gallbladder ultrasound. HOSPITAL COURSE: Date of Admission:02/10/17 Date of Discharge: 02/12/17 Patient is a 21 year old [place] speaking Female G2L0 @ 15 weeks gestation who presented to the ED with subjective fevers x1 day. Found to have fever of 100.4 and tachycardic with worsening back pain with deep inspiration. Patient also complained of abdominal pain that started x 1 day Admitted for evaluation of fever. Ruled out pneumonia (CXR negative); UTI (UA normal). Group A strep-negative. Throat culture pendingFever most likely due to dehydration which is commonly seen in due to lack of adequate fluid intake. ID and flight engineer inspector was consulted. Patient doesn't have a transplant coordinator, appointment scheduled on 02/26/[address] Barrios. G4L0. USG showed 15 weeks and 2 days gestation. Continue vitamins. Encourage PO intake. Plan of care explained to the patient. She verbalized understanding. Case discussed with Dr. Wiggins. Minutes to complete discharge: 45 Discharge Summary Reason For Visit: UTI, FEVER, DEHYDRATION Current Active Problems 16 weeks gestation of (Acute) Dehydration (Acute) Fever (Acute) Fever of unknown origin (Acute) (Acute) UTI (urinary tract infection) during (Chronic) Condition: Improved - Instructions Diet, Activity, Other Instructions: Discharge Instructions: You were admitted for evaluation of fever which is most likely due to dehydration, common in . Please drink plenty of fluids. Your appointment with shipping clerk packing has been scheduled 02/20/2017 at 2pm, please continue to take folic acid. You do not need to take any other medication at this time. Please return to the Emergency Department immediately if your symptoms persist or if you develop any new symptoms. Instrucciones de shi: -Usted eid sido evaluada por fiebre, que es resultado de deshidracion, comun en el embarazo. Por favor lon cecilia agua y fluidos. [place] jose luis con la ginecologa eid sido hecho para 02/20/2017 a las 2 PM. Por favor continuar tomando las vitaminas prenatales. No es necesario beber ninguna otra medicacion. Por favor vuelva al Departamento de Emergencias si brian sintomas continuan. Referrals: Isidra Weems MD [Staff Physician] - 02/20/17 2:00 pm STAFF,NOT ON [Primary Care Provider] - Disposition: HOME This patient is new to me today: No Emergency Visit: Yes ED Registration Date: 02/10/17 Care time: The patient presented to the Emergency Department on the above date and was hospitalized for further evaluation of their emergent condition. Critical Care patient: No - Discharge Referral Referred to [facility] Med P.C.: No
--- NOTE | 2017-02-12 18:28 | PN ---
Teaching Attending Note Name of Resident: Samara Russell ATTENDING PHYSICIAN STATEMENT I saw and evaluated the patient. I reviewed the resident's note and discussed the case with the resident. I agree with the resident's findings and plan as documented. SUBJECTIVE: no fever , no abd pain or cp or cough OBJECTIVE: NAD CV: RRR Lungs : CTAB ext : no edema Abd : soft, NT, ND , NL BS ASSESSMENT AND PLAN: 21 y/o lady who is 15 week presented with fever . 1- Fever : no clear source . likely viral illness no UA , no PNA . no leukocytosis . no vaginal discharge rapid strep Neg. cx of throat neg blood cx no growth to date dc abx 2- Pregnency : seen by CLINICAL STATISTICAL PROGRAMMER f/u as out pt
--- NOTE | 2017-02-22 15:46 | EKG ---
Test Reason : Blood Pressure : / mmHG Vent. Rate : 144 BPM Atrial Rate : 144 BPM P-R Int : 118 ms QRS Dur : 076 ms QT Int : 270 ms P-R-T Axes : 033 036 -19 degrees QTc Int : 418 ms POOR DATA QUALITY, INTERPRETATION MAY BE ADVERSELY AFFECTED SINUS TACHYCARDIA NONSPECIFIC T WAVE ABNORMALITY ABNORMAL ECG WHEN COMPARED WITH ECG OF 10-FEB-2017 18:06, NO SIGNIFICANT CHANGE WAS FOUND Confirmed by MEGHAN DIALLO, ISABEL ([id number]) on 02/22/2017 3:45:55 PM Referred By: Confirmed By:ISABEL CHRISTIANSON MD
== END 2017-02-12 18:05 | disposition home or self-care (01) | DRG 566 ==
LOC: JER 10:59 → JERBED 21:33 → J6S 02-11 03:07
PROVIDERS: ADMIT Internal Medicine; ATTEND Internal Medicine
DX: O98.512 Other viral diseases complicating pregnancy, second trimester (principal); O26.892 Other specified pregnancy related conditions, second trimester; E86.0 Dehydration; R50.9 Fever, unspecified; Z3A.15 15 weeks gestation of pregnancy
CPT/HCPCS: 36415; 71010-TC; 76705-TC; 76775-TC; 76815-TC; 80048; 80053; 81003; 81015; 83605; 84439; 84443; 84481; 85025; 86850; 86900; 86901; 87040; 87070; 87086; 87254; 87430; 87804; 93005; 93010; 99285-25

== ENCOUNTER 2017-07-16 14:10 | Inpatient (IN) | payer OTHER ==
[2017-07-16] MEDS ORDERED: DINOPROSTONE 10 MG VAGINAL SUPPOSITORY VG ONE ×2 (15:00→16:15)
--- NOTE | 2017-07-16 15:55 | HP ---
Past Medical History - Admission Chief Complaint: Elective induction History of Present Illness: 21 yo , @ 38 weeks gestation, EDC 07/27/17, sent by Dr Gaines's office for induction of labor due to suspicion of IUGR. Patient has h/o loss at 24 weeks gestation. 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 No: Migraine, Seizure Gastrointestinal: Yes: Other (no vomoting , vague upper abd pain ). No: Gastritis ...: 2 ...Para: 0 ...: 1 ...EDC by Sono: 07/27/17 - Past Surgical History Past Surgical History: Yes: None Hx Myomectomy: No Hx Transabdominal Cerclage: No - Smoking History Smoking history: Never smoked Have you smoked in the past 12 months: No - Alcohol/Substance Use Hx Alcohol Use: No History of Substance Use: reports: None Home Medications - Allergies Allergies/Adverse Reactions: Allergies Allergy/AdvReac Type Severity Reaction Status Date / Time No Known Allergies Allergy Verified 07/16/17 15:23 - Home Medications Home Medications: Ambulatory Orders Vit/Iron Fumarate/FA [ Tablet] 1 tab PO DAILY 07/11/17 Family Disease History - Family Disease History Family History: Unremarkable Review of Systems - Review of Systems Constitutional: reports: No Symptoms Eyes: reports: No Symptoms HENT: reports: No Symptoms Neck: reports: No Symptoms Cardiovascular: reports: No Symptoms Respiratory: reports: No Symptoms Gastrointestinal: reports: No Symptoms Genitourinary: reports: No Symptoms Breasts: reports: No Symptoms Reported Musculoskeletal: reports: No Symptoms Integumentary: reports: No Symptoms Neurological: reports: No Symptoms Endocrine: reports: No Symptoms Hematology/Lymphatic: reports: No Symptoms Psychiatric: reports: No Symptoms Pain Intensity: 1 Physical Exam - Maternity Constitutional: Yes: Well Nourished Eyes: Yes: WNL HENT: Yes: WNL Neck: Yes: Supple Cardiovascular: Yes: Regular Rate and Rhythm Lungs: Clear to auscultation Breast(s): Yes: WNL - Abdominal Exam/OB Number of Fetuses: Single Presentation: Vertex Contractions: No - Vaginal Exam/OB Vaginal Bleediing: No Dilatation (cm): 1 Amniotic Membrane Status: Intact Station: -2 - Physical Exam Musculoskeletal: Yes: WNL Extremities: Yes: WNL ...Motor Strength: WNL Psychiatric: Yes: Alert, Oriented Problem List - Problems (1) 38 weeks gestation of Code(s): Z3A.38 - 38 WEEKS GESTATION OF (2) IUGR, Code(s): P05.9 - AFFECTED BY SLOW INTRAUTERINE GROWTH, UNSPECIFIED Assessment/Plan IUP @ 38 weeks Suspicion of IUGR Personal h/o loss Admit to L&D for Cervidil induction
[2017-07-16] MEDS ORDERED: DEXTROSE 5%-LACTATED RINGERS 1,000 ML IV SCH (16:15)
[2017-07-16 16:39] VITALS: BMI 30.2
[2017-07-16 16:51] LABS: BASO % 0.5 % (0-2.0); EOS % 1.6 % (0-4.5); HEMATOCRIT 38.3 % (32.4-45.2); HEMOGLOBIN 13.4 GM/dL (10.7-15.3); LYMPH % 21.7 % (8-40); MCH 30.3 pg (25.7-33.7); MCHC 35.1 g/dl (32.0-36.0); MEAN CELL VOLUME 86.4 fl (80-96); MEAN PLT VOLUME 8.7 fl (7.5-11.1); MONO % 7.9 % (3.8-10.2); NEUT % 68.3 % (42.8-82.8); PLATELET COUNT 314 K/MM3 (134-434); RBC 4.43 M/mm3 (3.60-5.2); WHITE BLOOD COUNT 11.4 K/mm3 (4.0-10.0)
[2017-07-16 17:00] LABS: INR 0.93 (0.82-1.09); PROTHROMBIN TIME (PATIENT) 10.5 SEC (9.98-11.88)
[2017-07-16 17:03] LABS: ACTIVATED PTT 26.8 SECONDS (26.9-34.4)
[2017-07-16 17:31] LABS: CHLORIDE 104 mmol/L (98-107); POTASSIUM 4.2 mmol/L (3.5-5.1); SODIUM 137 mmol/L (136-145)
[2017-07-16 17:36] LABS: ANION GAP 12 (8-16); BLOOD UREA NITROGEN 9 mg/dL (7-18); CALCIUM 9.2 mg/dL (8.5-10.1); CO2 21 mmol/L (21-32); CREATININE 0.5 mg/dL (0.55-1.02); GLUCOSE,RANDOM 82 mg/dL (74-106)
[2017-07-17] MEDS ORDERED: BUTORPHANOL TARTRATE 1 MG/ML VIAL IVPUSH ONE (05:20)
[2017-07-17] MEDS ORDERED: PROMETHAZINE HCL 25 MG/1 ML VIAL IVPUSH ONE (05:20)
[2017-07-17] MEDS ORDERED: ELECTROLYTE-148 SOLN 1,000 ML IV SCH (08:00)
[2017-07-17] MEDS ORDERED: FENTANYL/BUPIVACAINE/NS/PF - PCEA - 50 ML DISP.SYRIN EP SCH (08:20)
[2017-07-17] MEDS ORDERED: BENZOCAINE 28 GM HEMORRHOIDAL OINTMENT TP PRN (10:11)
[2017-07-17] MEDS ORDERED: WITCH HAZEL 50% (TUCKS) 40 PAD/JAR PAD TP PRN (10:11)
[2017-07-17] MEDS ORDERED: METHYLERGONOVINE MALEATE 0.2 MG/1 ML AMP IM PRN (10:11)
[2017-07-17] MEDS ORDERED: BENZOCAINE 20% 57 GM BOTTLE TP PRN (10:11)
[2017-07-17] MEDS ORDERED: IBUPROFEN 600 MG TABLET (FP) PO PRN (10:11)
[2017-07-17] MEDS ORDERED: BISACODYL 10 MG SUPP.RECT RC PRN (10:11)
--- NOTE | 2017-07-17 10:14 | PN ---
Delivery - Delivery Vaginal Delivery: Spontaneous Type of Anesthesia: Epidural Episiotomy/Laceration: 1st degree EBL (cc): 250 Delivery, Single - [facility] Feeding Plan Initial Plan: Exclusive throughout hospitalization Remarks - Remarks Remarks: Normal spontaneous vaginal delivery of a live SGA over 1st degree laceration. Nose / Oropharyn suctioned @ perineum. Nuchal cord x1 clamped and cut Placenta expelled spontaneously intact. Laceration repaired with 2.0 Biosyn.
[2017-07-17] MEDS ORDERED: OXYTOCIN 20 UNITS in 0.9% NS 20 UNIT/1,000 ML INFUS.BAG IV SCH (10:15)
[2017-07-17] MEDS: ACETAMINOPHEN 325 MG TABLET (FP) PO PRN ×2 (11:04→18:28)
[2017-07-17] MEDS: FERROUS SO4 325 MG TABLET (FP) PO SCH ×2 (13:01→17:17)
--- NOTE | 2017-07-18 07:28 | PN ---
Post Note - Post Date of Delivery: 07/17/17 Post Day: 1 Vital Signs: Vital Signs - 24 hr 07/17/17 07/17/17 07/17/17 08:00 08:20 08:25 Temperature 98.0 F Pulse Rate 68 80 94 H Respiratory 20 20 20 Rate Blood Pressure 133/67 119/73 114/75 O2 Sat by Pulse 100 Oximetry (%) 07/17/17 07/17/17 07/17/17 08:30 08:40 09:00 Temperature Pulse Rate 74 73 87 Respiratory 20 20 20 Rate Blood Pressure 109/71 108/72 134/90 O2 Sat by Pulse 100 Oximetry (%) 07/17/17 07/17/17 07/17/17 09:15 10:00 10:15 Temperature Pulse Rate 76 103 H 92 H Respiratory 20 20 20 Rate Blood Pressure 123/81 120/62 121/80 O2 Sat by Pulse Oximetry (%) 07/17/17 07/17/17 07/17/17 10:30 10:45 12:11 Temperature 98.7 F 98.1 F Pulse Rate 74 76 89 Respiratory 20 20 18 Rate Blood Pressure 126/74 123/74 114/66 O2 Sat by Pulse Oximetry (%) 07/17/17 07/17/17 07/17/17 14:00 18:33 20:42 Temperature 99.5 F 97.6 F 98.8 F Pulse Rate 88 111 H 108 H Respiratory 18 18 20 Rate Blood Pressure 114/66 129/83 100/79 O2 Sat by Pulse Oximetry (%) 07/18/17 04:17 Temperature 98.8 F Pulse Rate 72 Respiratory 18 Rate Blood Pressure 108/67 O2 Sat by Pulse Oximetry (%) - Subjective Subjective: No Complaints - Objective Afebrile: Yes Breast: Not engorged Abdomen: Soft, Non-tender Uterus: Fundus firm Vagina: Scant lochia Extremities: Non-tender - Assessment/Plan (1) Normal vaginal delivery Assessment: S/P Normal Plan: Routine Care
[2017-07-18] MEDS: FERROUS SO4 325 MG TABLET (FP) PO SCH ×3 (07:31→17:04)
[2017-07-18 08:55] LABS: BASO % 0.6 % (0-2.0); HEMATOCRIT 35.9 % (32.4-45.2); LYMPH % 28.3 % (8-40); MCH 29.2 pg (25.7-33.7); MCHC 33.3 g/dl (32.0-36.0); MEAN CELL VOLUME 87.6 fl (80-96); MEAN PLT VOLUME 7.7 fl (7.5-11.1); MONO % 6.7 % (3.8-10.2); NEUT % 62.4 % (42.8-82.8); PLATELET COUNT 230 K/MM3 (134-434); RDW 13.6 % (11.6-15.6); WHITE BLOOD COUNT 13.7 K/mm3 (4.0-10.0)
[2017-07-18] MEDS: PRENATAL VITAMINS W/ FOLIC ACID TABLET (FP) PO SCH (09:21)
--- NOTE | 2017-07-18 09:31 | PN ---
Post Progress Note - Subjective Subjective: no complains Post Day: 1 Type of Delivery: Vital Signs: Vital Signs Temperature 98 F 07/18/17 08:41 Pulse Rate 81 07/18/17 08:41 Respiratory Rate 20 07/18/17 08:41 Blood Pressure 116/76 07/18/17 08:41 O2 Sat by Pulse Oximetry (%) 100 07/17/17 08:30 Breast Exam: Yes: Soft. No: Engorged Uterus: Yes: Fundus Firm, Fundus above umbilicus Lochia: Yes: Rubra Lochia, amount: Moderate Extremities: Yes: Calves non-tender Perineum: Yes: Intact Activity: Ambulating - Labs Labs: CBC WBC 13.7 K/mm3 (4.0-10.0) H 07/18/17 08:45 RBC 4.10 M/mm3 (3.60-5.2) 07/18/17 08:45 Hgb 12.0 GM/dL (10.7-15.3) D 07/18/17 08:45 Hct 35.9 % (32.4-45.2) 07/18/17 08:45 MCV 87.6 fl (80-96) 07/18/17 08:45 MCH 29.2 pg (25.7-33.7) 07/18/17 08:45 MCHC 33.3 g/dl (32.0-36.0) 07/18/17 08:45 RDW 13.6 % (11.6-15.6) 07/18/17 08:45 Plt Count 230 K/MM3 (134-434) D 07/18/17 08:45 MPV 7.7 fl (7.5-11.1) D 07/18/17 08:45 Neutrophils % 62.4 % (42.8-82.8) 07/18/17 08:45 Lymphocytes % 28.3 % (8-40) D 07/18/17 08:45 Monocytes % 6.7 % (3.8-10.2) 07/18/17 08:45 Eosinophils % 2.0 % (0-4.5) 07/18/17 08:45 Basophils % 0.6 % (0-2.0) 07/18/17 08:45 Problem List - Problems (1) Vaginal delivery Code(s): O80 - ENCOUNTER FOR FULL-TERM UNCOMPLICATED DELIVERY Assessment/Plan stable. plan discharge tomorrow.
[2017-07-18] MEDS ORDERED: FLU VACC QS2017-18 36MOS UP/PF 60 MCG/0.5 ML SYRINGE IM ONE (10:00)
[2017-07-18] MEDS ORDERED: DIPHTH,PERTUSS(ACELL),TET 0.5 ML DISP.SYRIN IM ONE (10:00)
[2017-07-18] MEDS ORDERED: SENNOSIDES/DOCUSATE COMBO (SENNA PLUS) TABLET (UD) PO PRN (22:00)
[2017-07-19] MEDS: FERROUS SO4 325 MG TABLET (FP) PO SCH ×2 (07:45→11:56)
[2017-07-19] MEDS: PRENATAL VITAMINS W/ FOLIC ACID TABLET (FP) PO SCH (09:41)
[2017-07-19 10:13] VITALS: BP 123/76; PULSE 93; TEMP 99.3
--- NOTE | 2017-07-19 12:13 | DS ---
Physical Exam-REHAB [facility]IAISON Vital Signs: Vital Signs Temperature 99.3 F 07/19/17 10:00 Pulse Rate 93 H 07/19/17 10:00 Respiratory Rate 18 07/19/17 10:00 Blood Pressure 123/76 07/19/17 10:00 O2 Sat by Pulse Oximetry (%) 100 07/17/17 08:30 Constitutional: Yes: Well Nourished Eyes: Yes: Conjunctiva Clear HENT: Yes: Atraumatic Neck: Yes: Supple Cardiovascular: Yes: Regular Rate and Rhythm Respiratory: Yes: Regular Gastrointestinal: Yes: Normal Bowel Sounds ...Rectal Exam: Yes: WNL Renal/: Yes: WNL Pelvis: Yes: WNL External Genitalia: Yes: Normal Vaginal Exam: Yes: Normal Cervix: Yes: Normal Uterus: Yes: Firm ....Post : Yes: Uterus firm Breast(s): Yes: WNL Musculoskeletal: Yes: WNL Neurological: Yes: Alert, Oriented ...Motor Strength: WNL Psychiatric: Yes: Alert, Oriented Labs: CBC, BMP 07/18/17 08:45 07/16/17 16:05 Delivery - Delivery Vaginal Delivery: Spontaneous Type of Anesthesia: Epidural Episiotomy/Laceration: None, 1st degree EBL (cc): 250 Delivery, Single - Stages of Labor Date 1st Stage Initiatied: 07/17/17 Time 1st Stage Initiated: 00:00 Date 2nd Stage Initiated: 07/17/17 Time 2nd Stage Initiated: 09:25 Date of Delivery: 07/17/17 Time of Delivery: 09:50 Time Placenta Delivered: 09:57 - Condition of Infant 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 Name: Heather Kevin Gender: Male Weight: 4 lb 14 oz Position: Left, OA Total Hours ROM (Hrs/Mins): 1hr 50min - 1 Minute Total Score: 7 5 Minutes Total Score: 9 - [place] Feeding Plan Initial Plan: Exclusive throughout hospitalization Discharge Summary Current Active Problems 38 weeks gestation of (Acute) IUGR, (Acute) Normal vaginal delivery (Acute) Vaginal delivery (Acute) Procedures: Principal: Normal spontaneous vaginal delivery Hospital Course: Routine care Condition: Good - Instructions Diet, Activity, Other Instructions: Regular diet No douching, no sexual intercourse x 6 weeks F/U in clinic in 6 weeks Disposition: HOME - Home Medications Comprehensive Discharge Medication List: Ambulatory Orders Vit/Iron Fumarate/FA [ Tablet] 1 tab PO DAILY 07/11/17
== END 2017-07-19 14:15 | disposition home or self-care (01) | DRG 560 ==
LOC: JDEL 14:10 → JLDR 14:55 → J3W 07-17 12:03
PROVIDERS: ADMIT Obstetrics & Gynecology; ATTEND Obstetrics & Gynecology
PROC: 10E0XZZ Delivery of Products of Conception, External Approach (ICD-10-PCS; principal; 2017-07-16)
PROC: 0HQ9XZZ Repair Perineum Skin, External Approach (ICD-10-PCS; 2017-07-16)
DX: O36.5930 Maternal care for other known or suspected poor fetal growth, third trimester, not applicable or unspecified (principal); O69.81X0 Labor and delivery complicated by cord around neck, without compression, not applicable or unspecified; O70.0 First degree perineal laceration during delivery; Z3A.39 39 weeks gestation of pregnancy; Z37.0 Single live birth
CPT/HCPCS: 36415; 59409; 80048; 85025; 85610; 85730; 86593; 86850; 86900; 86901; 90686; 90715; G0008

== ENCOUNTER 2020-10-24 17:51 | Inpatient (IN) | payer OTHER ==
[2020-10-24 18:01] VITALS: BMI 30.8
[2020-10-24 20:57] LABS: CALCIUM 8.4 mg/dL (8.5-10.1)
[2020-10-24 20:58] LABS: ALBUMIN 2.5 g/dl (3.4-5.0); MAGNESIUM 2.2 mg/dL (1.8-2.4)
[2020-10-24 21:01] LABS: CREATININE 0.4 mg/dL (0.55-1.3)
[2020-10-24 21:02] LABS: BILIRUBIN,TOTAL 0.3 mg/dL (0.2-1); TOT PROT 6.2 g/dl (6.4-8.2)
[2020-10-24 21:39] LABS: EPI CELLS >36 /uL (0-25.1); HYALINE CASTS 1 /uL (0-3.1); PH,URINE 7.5 (5.0-8.0); URINE APPEARANCE CLEAR; URINE BACTERIA 309 /uL (0-1359); URINE BILIRUBIN NEGATIVE (NEGATIVE); URINE COLOR YELLOW; URINE GLUCOSE (UA) NEGATIVE (NEGATIVE); URINE KETONE 1+ (NEGATIVE); URINE LEUK ESTERASE 1+ (NEGATIVE); URINE NITRITE NEGATIVE (NEGATIVE); URINE PROTEIN NEGATIVE (NEGATIVE); URINE RBC 5 /uL (0-23.9); URINE WBC 8 /uL (0-25.8)
[2020-10-25] MEDS ORDERED: ACETAMINOPHEN 325 MG TABLET (FP) PO PRN (01:28)
[2020-10-26 08:13] LABS: HEMOGLOBIN 12.3 GM/dL (10.7-15.3); LYMPH % 20.4 % (8-40); MCHC 34.1 g/dl (32.0-36.0); MEAN PLT VOLUME 8.1 fl (7.5-11.1); MONO % 10.6 % (3.8-10.2); PLATELET COUNT 323 K/MM3 (134-434); RBC 4.09 M/mm3 (3.60-5.2); RDW 13.2 % (11.6-15.6); WHITE BLOOD COUNT 11.9 K/mm3 (4.0-10.0)
[2020-10-26 08:25] LABS: POTASSIUM 4.2 mmol/L (3.5-5.1)
[2020-10-26 08:27] LABS: ALBUMIN 2.2 g/dl (3.4-5.0); BLOOD UREA NITROGEN 7.7 mg/dL (7-18); CALCIUM 8.8 mg/dL (8.5-10.1)
[2020-10-26 08:31] LABS: CREATININE 0.5 mg/dL (0.55-1.3)
[2020-10-26 08:32] LABS: BILIRUBIN,TOTAL 0.3 mg/dL (0.2-1); TOT PROT 5.8 g/dl (6.4-8.2)
[2020-10-26 14:23] VITALS: BP 133/80; PULSE 99; TEMP 98.2
== END 2020-10-26 14:55 | disposition home or self-care (01) | DRG 566 ==
LOC: JER 17:51 → JERBED 22:18 → J3W 22:42
PROVIDERS: ADMIT Obstetrics & Gynecology; ATTEND Obstetrics & Gynecology
DX: O26.893 Other specified pregnancy related conditions, third trimester (principal); R51.9 Headache, unspecified; H53.8 Other visual disturbances; R41.3 Other amnesia; E16.2 Hypoglycemia, unspecified; Z3A.33 33 weeks gestation of pregnancy
CPT/HCPCS: 36415; 59025; 76817-TC; 76819-TC; 80053; 81003; 82565; 82962; 82977; 83010; 83735; 84156; 84443; 84450; 84460; 84550; 85025; 85032; 85045; 93005; 93010; 93880-TC; 99285-25; C9803; U0003

== ENCOUNTER 2020-11-25 12:15 | Inpatient (IN) | payer OTHER ==
[2020-11-25] MEDS ORDERED: DEXTROSE 5%-LACTATED RINGERS 1,000 ML IV SCH (13:00)
[2020-11-25] MEDS ORDERED: DINOPROSTONE 10 MG VAGINAL SUPPOSITORY VG ONE (13:04)
[2020-11-25 14:04] LABS: BASO % 0.9 % (0-2.0); EOS % 0.7 % (0-4.5); HEMATOCRIT 38.5 % (32.4-45.2); HEMOGLOBIN 13.2 GM/dL (10.7-15.3); LYMPH % 15.8 % (8-40); MCH 30.1 pg (25.7-33.7); MCHC 34.2 g/dl (32.0-36.0); MEAN CELL VOLUME 88.2 fl (80-96); MEAN PLT VOLUME 8.3 fl (7.5-11.1); MONO % 5.8 % (3.8-10.2); NEUT % 76.8 % (42.8-82.8); PLATELET COUNT 280 K/MM3 (134-434); RBC 4.37 M/mm3 (3.60-5.2); RDW 13.7 % (11.6-15.6); WHITE BLOOD COUNT 12.3 K/mm3 (4.0-10.0)
[2020-11-25 14:11] LABS: INR 0.94 (0.83-1.09); PROTHROMBIN TIME (PATIENT) 11.4 SEC (9.7-13.0)
[2020-11-25 14:13] LABS: ACTIVATED PTT 26.3 SECONDS (25.2-36.5)
[2020-11-25 14:22] LABS: CALCIUM 9.2 mg/dL (8.5-10.1)
[2020-11-25 14:23] LABS: BLOOD UREA NITROGEN 10.7 mg/dL (7-18)
[2020-11-25 14:27] LABS: CREATININE 0.6 mg/dL (0.55-1.3)
[2020-11-25 14:28] VITALS: BMI 31.0
[2020-11-25] MEDS ORDERED: AMPICILLIN - 2 GM in SODIUM CHLORIDE 100 ML IVPB ONE (14:33)
[2020-11-25] MEDS ORDERED: PROMETHAZINE HCL 25 MG/1 ML VIAL IVPUSH ONE (14:35)
[2020-11-25] MEDS ORDERED: BUTORPHANOL TARTRATE 1 MG/ML VIAL IVPUSH PRN (14:35)
[2020-11-25] MEDS ORDERED: AMPICILLIN SODIUM 2 GM VIAL ONE (15:00)
[2020-11-25] MEDS ORDERED: BUTORPHANOL TARTRATE 2 MG/ML VIAL ONE (18:09)
[2020-11-25] MEDS ORDERED: PROMETHAZINE HCL 25 MG/1 ML VIAL ONE (18:09)
[2020-11-25] MEDS ORDERED: AMPICILLIN SODIUM 1 GM VIAL ONE ×2 (18:10→22:56)
[2020-11-25] MEDS: AMPICILLIN - 1 GM in SODIUM CHLORIDE 100 ML IVPB SCH ×2 (18:40→23:02)
[2020-11-25] MEDS ORDERED: OXYTOCIN 30 UNITS in 0.9% NS 30 UNIT/500 ML INFUS.BAG IVPB SCH (20:45)
[2020-11-25] MEDS ORDERED: ELECTROLYTE-148 SOLN 1,000 ML IV SCH (20:45)
[2020-11-25] MEDS ORDERED: FENTANYL/BUPIVACAINE/NS/PF - PCEA - 50 ML DISP.SYRIN EP ONE (20:50)
[2020-11-25] MEDS ORDERED: NALOXONE HCL 0.4 MG/ML VIAL IVPUSH PRN (20:54)
[2020-11-25] MEDS ORDERED: BUPIVACAINE HCL/PF 0.25% (2.5MG/ML) 10 ML VIAL ONE (20:59)
[2020-11-25] MEDS ORDERED: PCA PUMP NR ONE (21:03)
[2020-11-25] MEDS: FENTANYL/BUPIVACAINE/NS/PF - PCEA - 50 ML DISP.SYRIN EP SCH (21:15)
[2020-11-25] MEDS ORDERED: MEPERIDINE HCL 50 MG/ML VIAL ONE ×2 (21:52→21:58)
[2020-11-25] MEDS ORDERED: MEPERIDINE HCL 50 MG/ML VIAL IVPUSH ONE (23:04)
[2020-11-25] MEDS ORDERED: LIDOCAINE HCL 1% PRESERVATIVE FREE - 30ML VIAL ONE (23:24)
[2020-11-25] MEDS ORDERED: OXYTOCIN 20 UNITS in 0.9% NS 20 UNIT/1,000 ML INFUS.BAG IV ONE (23:24)
[2020-11-25] MEDS ORDERED: OXYTOCIN 20 UNITS in 0.9% NS 20 UNIT/1,000 ML INFUS.BAG IV SCH (23:45)
[2020-11-25] MEDS ORDERED: BENZOCAINE 20% 57 GM BOTTLE TP PRN (23:52)
[2020-11-25] MEDS ORDERED: BISACODYL 10 MG SUPP.RECT RC PRN (23:52)
[2020-11-25] MEDS ORDERED: WITCH HAZEL 50% (TUCKS) 40 PAD/JAR PAD TP PRN (23:52)
[2020-11-25] MEDS ORDERED: METHYLERGONOVINE MALEATE 0.2 MG/1 ML AMP IM PRN (23:52)
[2020-11-25] MEDS ORDERED: BENZOCAINE 28 GM HEMORRHOIDAL OINTMENT TP PRN (23:52)
[2020-11-26 00:31] LABS: CORD BASE EXCESS -3.9 mmol/L (0-2); CORD HCO3 23.1 mmHg (20-29); CORD pH 7.291 (7.14-7.44)
[2020-11-26 00:38] LABS: CORD BASE EXCESS -2.9 mmol/L (0-2); CORD HCO3 26.4 mmHg (20-29); CORD PCO2 64.9 mmHg (30-78); CORD pH 7.227 (7.14-7.44)
[2020-11-26] MEDS: AMPICILLIN - 1 GM in SODIUM CHLORIDE 100 ML IVPB SCH (03:30)
[2020-11-26 07:49] LABS: BASO % 0.7 % (0-2.0); EOS % 0.9 % (0-4.5); HEMATOCRIT 35.4 % (32.4-45.2); HEMOGLOBIN 12.5 GM/dL (10.7-15.3); LYMPH % 17.4 % (8-40); MCH 31.2 pg (25.7-33.7); MCHC 35.4 g/dl (32.0-36.0); MEAN PLT VOLUME 7.9 fl (7.5-11.1); MONO % 7.7 % (3.8-10.2); NEUT % 73.3 % (42.8-82.8); PLATELET COUNT 244 K/MM3 (134-434); RBC 4.02 M/mm3 (3.60-5.2); RDW 13.3 % (11.6-15.6); WHITE BLOOD COUNT 15.5 K/mm3 (4.0-10.0)
[2020-11-26] MEDS: FERROUS SO4 325 MG TABLET (FP) PO SCH ×2 (10:37→21:10)
[2020-11-26] MEDS: IBUPROFEN 600 MG TABLET (FP) PO PRN ×2 (10:37→22:56)
[2020-11-26] MEDS: PRENATAL VITAMINS W/ FOLIC ACID TABLET (FP) PO SCH (10:38)
[2020-11-26] MEDS: ACETAMINOPHEN 325 MG TABLET (FP) PO PRN ×2 (10:38→22:56)
[2020-11-26] MEDS: FENTANYL/BUPIVACAINE/NS/PF - PCEA - 50 ML DISP.SYRIN EP SCH (21:00)
[2020-11-26] MEDS ORDERED: SENNOSIDES/DOCUSATE COMBO (SENNA PLUS) TABLET (UD) PO PRN (22:00)
[2020-11-26 22:36] VITALS: TEMP 98.2
[2020-11-27] MEDS: FERROUS SO4 325 MG TABLET (FP) PO SCH (09:47)
[2020-11-27] MEDS: PRENATAL VITAMINS W/ FOLIC ACID TABLET (FP) PO SCH (09:47)
[2020-11-27] MEDS: IBUPROFEN 600 MG TABLET (FP) PO PRN (09:47)
[2020-11-27] MEDS: ACETAMINOPHEN 325 MG TABLET (FP) PO PRN (09:48)
[2020-11-27 13:40] VITALS: BP 126/88; PULSE 86
== END 2020-11-27 13:55 | disposition home or self-care (01) | DRG 560 ==
LOC: JLDR 12:15 → J3W 11-26 02:21
PROVIDERS: ADMIT Obstetrics & Gynecology; ATTEND Obstetrics & Gynecology
PROC: 10E0XZZ Delivery of Products of Conception, External Approach (ICD-10-PCS; principal; 2020-11-25)
PROC: 3E0P7VZ Introduction of Hormone into Female Reproductive, Via Natural or Artificial Opening (ICD-10-PCS; 2020-11-25)
DX: O42.12 Full-term premature rupture of membranes, onset of labor more than 24 hours following rupture (principal); Z3A.38 38 weeks gestation of pregnancy; Z37.0 Single live birth
CPT/HCPCS: 36415; 36600; 59409; 80048; 82803; 85025; 85610; 85730; 86780; 86850; 86900; 86901; C9803; J2175; U0003; U0005

== ENCOUNTER 2021-03-21 15:45 | Emergency (ER) | payer OTHER ==
[2021-03-21 16:16] VITALS: BP 124/84; PULSE 89; TEMP 98.5; BMI 27.8
[2021-03-21 18:36] LABS: CHLORIDE 110 mmol/L (98-107); SODIUM 142 mmol/L (136-145)
[2021-03-21 18:38] LABS: ALBUMIN 3.8 g/dl (3.4-5.0); ANION GAP 7 MMOL/L (8-16); BASO % 0.6 % (0-2.0); BLOOD UREA NITROGEN 13.6 mg/dL (7-18); CALCIUM 8.7 mg/dL (8.5-10.1); CO2 25 mmol/L (21-32); EOS % 1.8 % (0-4.5); GLUCOSE,RANDOM 115 mg/dL (74-106); HEMATOCRIT 40.5 % (32.4-45.2); HEMOGLOBIN 13.7 GM/dL (10.7-15.3); LYMPH % 18.2 % (8-40); MCH 28.9 pg (25.7-33.7); MCHC 33.9 g/dl (32.0-36.0); MEAN CELL VOLUME 85.4 fl (80-96); MEAN PLT VOLUME 7.5 fl (7.5-11.1); MONO % 5.4 % (3.8-10.2); PLATELET COUNT 372 10^3/uL (134-434); RBC 4.74 M/mm3 (3.60-5.2); RDW 12.7 % (11.6-15.6); WHITE BLOOD COUNT 11.6 K/mm3 (4.0-10.0)
[2021-03-21 18:41] LABS: CREATININE 0.6 mg/dL (0.55-1.3); SGOT/AST 22 U/L (15-37); SGPT/ALT 45 U/L (13-61)
[2021-03-21 18:42] LABS: BILIRUBIN,TOTAL 0.2 mg/dL (0.2-1); TOT PROT 7.8 g/dl (6.4-8.2)
[2021-03-21 18:44] LABS: ALK PHOS 107 U/L (45-117)
== END 2021-03-21 19:32 | disposition home or self-care (01) ==
LOC: JER 15:45
DX: R07.9 Chest pain, unspecified (principal)
CPT/HCPCS: 36415; 71046-TC-FY; 80053; 84484; 84703; 85025; 85379; 93005; 93010; 99285-25; C9803; U0003; U0005

== ENCOUNTER 2021-08-04 12:55 | Emergency (ER) | payer OTHER ==
[2021-08-04 13:08] VITALS: BP 121/80; PULSE 100; TEMP 97.4; BMI 28.9
== END 2021-08-04 16:42 | disposition home or self-care (01) ==
LOC: JERFT 12:55 → JER 12:55 → JERFT 16:42
DX: M94.0 Chondrocostal junction syndrome [Tietze] (principal); F41.9 Anxiety disorder, unspecified
CPT/HCPCS: 71046-TC-FY; 93005; 93010; 99284-25

== ENCOUNTER 2021-08-09 13:29 | Emergency (ER) | payer OTHER ==
[2021-08-09 13:57] VITALS: BMI 33.4
[2021-08-09] MEDS ORDERED: KETOROLAC TROMETHAMINE 30 MG/1 ML VIAL IVPUSH ONE (16:41)
[2021-08-09] MEDS ORDERED: SODIUM CHLORIDE 1,000 ML IV ONE (16:41)
[2021-08-09 16:53] LABS: BASO % 0.5 % (0-2.0); EOS % 0.7 % (0-4.5); HEMATOCRIT 42.7 % (32.4-45.2); HEMOGLOBIN 14.4 GM/dL (10.7-15.3); LYMPH % 13.1 % (8-40); MCH 28.1 pg (25.7-33.7); MCHC 33.7 g/dl (32.0-36.0); MEAN CELL VOLUME 83.5 fl (80-96); MEAN PLT VOLUME 7.2 fl (7.5-11.1); MONO % 8.6 % (3.8-10.2); NEUT % 77.1 % (42.8-82.8); PLATELET COUNT 370 10^3/uL (134-434); RBC 5.11 M/mm3 (3.60-5.2); RDW 13.1 % (11.6-15.6); WHITE BLOOD COUNT 11.3 K/mm3 (4.0-10.0)
[2021-08-09] MEDS ORDERED: KETOROLAC TROMETHAMINE 30 MG/1 ML VIAL ONE (16:58)
[2021-08-09 17:00] LABS: INR 1.17 (0.83-1.09); PROTHROMBIN TIME (PATIENT) 13.7 SEC (9.7-13.0)
[2021-08-09 17:03] LABS: ACTIVATED PTT 27.9 SECONDS (25.2-36.5)
[2021-08-09 17:10] LABS: CHLORIDE 105 mmol/L (98-107); SODIUM 141 mmol/L (136-145)
[2021-08-09 17:13] LABS: ANION GAP 6 MMOL/L (8-16); BLOOD UREA NITROGEN 10.1 mg/dL (7-18); CO2 30 mmol/L (21-32); GLUCOSE,RANDOM 88 mg/dL (74-106)
[2021-08-09 17:16] LABS: CREATININE 0.6 mg/dL (0.55-1.3); SGOT/AST 14 U/L (15-37); SGPT/ALT 20 U/L (13-61)
[2021-08-09 17:18] LABS: BILIRUBIN,TOTAL 0.6 mg/dL (0.2-1); TOT PROT 7.8 g/dl (6.4-8.2)
[2021-08-09 17:19] LABS: ALK PHOS 102 U/L (45-117)
[2021-08-09 18:09] LABS: EPI CELLS >36 /uL (0-25.1); HCG,QUALITATIVE URINE Negative; HYALINE CASTS 3 /uL (0-3.1); PH,URINE 6.5 (5.0-8.0); URINE APPEARANCE CLOUDY; URINE BACTERIA 1849 /uL (0-1359); URINE BILIRUBIN NEGATIVE (NEGATIVE); URINE COLOR YELLOW; URINE GLUCOSE (UA) NEGATIVE (NEGATIVE); URINE KETONE NEGATIVE (NEGATIVE); URINE LEUK ESTERASE 2+ (NEGATIVE); URINE NITRITE NEGATIVE (NEGATIVE); URINE PROTEIN NEGATIVE (NEGATIVE); URINE RBC 11 /uL (0-23.9); URINE WBC 153 /uL (0-25.8)
[2021-08-09] MEDS ORDERED: cefTRIAXone SODIUM 1 GM VIAL ONE (18:55)
[2021-08-09] MEDS ORDERED: CEFTRIAXONE 1 GM/50 ML BAG ONE (19:55)
[2021-08-09] MEDS ORDERED: SODIUM CHLORIDE 0.9% 500 ML INFUS.BAG IV ONE (21:35)
[2021-08-09 22:12] VITALS: BP 127/73; TEMP 98.9
[2021-08-09 22:22] VITALS: PULSE 116
[2021-08-10 23:06] LABS: SARS-CoV-2 NAA Detected (Not Detected)
== END 2021-08-09 23:42 | disposition home or self-care (01) ==
LOC: JER 13:29
PROC: 3E033GC Introduction of Other Therapeutic Substance into Peripheral Vein, Percutaneous Approach (ICD-10-PCS; principal; 2021-08-09)
DX: R07.9 Chest pain, unspecified (principal)
CPT/HCPCS: 36415; 71275-TC; 80053; 81003; 82550; 84443; 84484; 84703; 85025; 85610; 85730; 93005; 93010; 93970-TC; 99285-25; C9803; Q9967; U0003; U0005

== ENCOUNTER 2023-11-08 12:32 | Emergency (ER) | payer OTHER ==
[2023-11-08 12:39] VITALS: BP 118/76; PULSE 82; RESP 18; TEMP 98.6; BMI 31.9
[2023-11-08] MEDS ORDERED: CLINDAMYCIN HCL 150 MG CAPSULE (FP) ONE (13:25)
[2023-11-08] MEDS ORDERED: ACETAMINOPHEN 500 MG TABLET (FP) ONE (13:26)
[2023-11-08] MEDS ORDERED: AMOX TR/POT CLAV 875MG/125MG TABLETS (FP) PO ONE (13:27)
[2023-11-08] MEDS: ACETAMINOPHEN 500 MG TABLET (FP) PO ONE (13:30)
[2023-11-08] MEDS: CLINDAMYCIN HCL 150 MG CAPSULE (FP) PO ONE (14:27)
== END 2023-11-08 14:27 | disposition short-term general hospital (02) ==
LOC: JER 12:32
DX: R51.9 Headache, unspecified (principal); R22.0 Localized swelling, mass and lump, head; K04.7 Periapical abscess without sinus
CPT/HCPCS: 99285-25